=== PATIENT | male | born 1960 | race Caucasian/White ===

== ENCOUNTER 2017-06-04 22:11 | Emergency (ER) | payer MEDICAID ==
[~2017-06-04 22:11] MED LIST: TRIAMCINOLONE 0.1% 15GM OINT TP SCH
[2017-06-04 22:17] VITALS: RESP 16
--- NOTE | 2017-06-04 22:34 | EDPHY ---
H & P Stated Complaint: bug bite to l leg yesterday, worsening redness, swelling today Source: Patient, Family Exam Limitations: No limitations - Personal History Current Tetanus/Diphtheria Vaccine: Yes Tetanus Vaccine Date: WITHIN 10 YRS - Medical/Surgical History Hx Asthma: No Hx Chronic Respiratory Disease: No Hx Diabetes: Yes Hx Cardiac Disease: No Hx Renal Disease: No Hx Cirrhosis: No Hx Alcoholism: No Hx HIV/AIDS: No Hx Splenectomy or Spleen Trauma: No Other PMH: Diabetes, knee surgery - Social History Smoking Status: Never smoked HPI/ROS: CHIEF COMPLAINT: Bug bite HISTORY OF PRESENT ILLNESS: Patient complains of bug bite to the left medial ankle. This happened last night when he stepped outside is home. Did not see what it was. His had the same complaint but hers has resolved. Today his has started to become more painful, pruritic and red. It is localized to the area of vector inoculation. No systemic spreading. No fever chills. No leg pain. No difficulty with range of motion of the ankle. No blistering. No purulence. He is applied Neosporin to it and keep the wound covered. No other associated complaints or modifying factors. REVIEW OF SYSTEMS: Ten systems reviewed and are negative unless otherwise noted in the HPI PAST MEDICAL HISTORY: Hypothyroid, type 2 diabetes SOCIAL HISTORY: Nonsmoker. Resides here in [place] FAMILY HISTORY: Noncontributory EXAMINATION General Appearance: Alert, no distress Respiratory: No distress. No retractions. No tachypnea Cardiovascular: Regular rate. pulses intact distally in symmetrically. 2+ DP and PT pulses. Neurological: A&O, nonfocal, normal gait Skin: Warm and dry. 2 cm area of erythema with central vesicles over the left medial ankle. This is a urticarial. No surrounding cellulitis. No surrounding warmth, purulence, induration or fluctuance. Extremities: Mild tenderness of the area bug bite. No pedal edema. No erythema or edema of the left lower extremity. No asymmetry of the legs. No evidence of DVT. Psychiatric: Mood and affect normal DIFFERENTIAL DIAGNOSES: Including but not limited to insect bite, insect bite with localized reaction, cellulitis, blister MDM: 10:30 p.m. Insect bite to the left medial ankle. There is localized erythema. No cellulitis. No edema. No fluctuance or purulence. Treat with topical triamcinolone for 24-48 hours. Instructed him to apply nonocclusive dressings well as steroid cream is in place. He is leaving town tomorrow for road trip, thus he will provide prescriptions Bactrim and Keflex. He is to the 24-48 hours. He is to take him if there is any increasing redness. Was no evidence of DVT or cellulitis at this time. We discussed tight glucose management as he is a type 2 diabetic on metformin. He is comfortable with this plan. He is discharged home stable condition SUPERVISION: This patient was independently evaluated without direct examination by the attending physician. Case was discussed with attending physician. (Joel Reynolds) PHYSICIAN DOCUMENTATION: The patient was evaluated and managed by the Physician Duplicate Maker. My co- signature indicates that I have reviewed this chart and I agree with the findings and plan of care as documented. I am the secondary supervising physician. (Yanni Gonzalez) Constitutional: Initial Vital Signs Temperature (C) 36.6 C 06/04/17 22:15 Heart Rate 66 06/04/17 22:15 Respiratory Rate 16 06/04/17 22:15 Blood Pressure 117/85 H 06/04/17 22:15 O2 Sat (%) 96 06/04/17 22:15 O2 Delivery Mode Room Air Allergies/Adverse Reactions: ENVIRONMENTAL Allergy (Uncoded 12/27/12 15:37) Other-Enter Comments Home Medications: Medication Instructions Recorded Acyclovir [Zovirax 400 mg (RX)] 400 mg PO DAILY 12/21/12 Cetirizine [ZyrTEC 10 mg (RX)] 10 mg PO DAILY PRN 12/21/12 Fenofibrate,Micronized [Lofibra] 200 mg PO DAILY 12/21/12 Levothyroxine [Synthroid 50 mcg 50 mcg PO DAILY06 12/21/12 (RX)] Cephalexin [Keflex (*)] 500 mg PO TID #30 cap 06/04/17 Lisinopril 06/04/17 Metformin HCl [Metformin 1000 mg] 1,500 mg PO DAILY 06/04/17 Sulfamethox/Tmp 800/160 mg 2 tab PO BID 10 Days 06/04/17 [Bactrim Ds] Departure - Departure Disposition: Home, Routine, Self-Care Clinical Impression: Insect bite of ankle with local reaction Condition: Good Instructions: Cephalexin (By mouth), Sulfamethoxazole/Trimethoprim (By mouth), Insect Bite or Sting (ED), Type 2 Diabetes in Adults (ED), Managing Diabetes During Sick Days (ED) Additional Instructions: 1. Topical triamcinolone for 24-48 hours and then re-evaluate with wound check 2. Bactrim and Keflex prescriptions to be taking if there is increasing redness , any fever or warmth to the area 3. Recommend follow up at nearest emergency department if there is spread of redness or swelling to the calf or any pain with passive flexion of the ankle. Referrals: Carter Perez MD [Primary Care Provider] - As per Instructions Prescriptions: Cephalexin [Keflex (*)] 500 mg PO TID #30 cap Sulfamethox/Tmp 800/160 mg [Bactrim Ds] 2 tab PO BID 10 Days
[2017-06-04] MEDS ORDERED: CEPHALEXIN 500MG PREPACK#4 BTL TAKEHOME ONE (22:38)
[2017-06-04] MEDS ORDERED: SULFAMET/TMP DS PREPACK#2 BTL TAKEHOME ONE (22:38)
[2017-06-04 23:22] VITALS: BP 128/77; PULSE 78; TEMP 98.2; O2SAT 98
[2017-06-05] MEDS ORDERED: TRIAMCINOLONE 0.1% 15GM OINT TP SCH ×2 (09:00)
== END 2017-06-04 23:00 | disposition home or self-care (01) ==
DX: S90.562A Insect bite (nonvenomous), left ankle, initial encounter (principal); E11.9 Type 2 diabetes mellitus without complications; Z79.84 Long term (current) use of oral hypoglycemic drugs; W57.XXXA Bitten or stung by nonvenomous insect and other nonvenomous arthropods, initial encounter; Y92.89 Other specified places as the place of occurrence of the external cause; Y99.8 Other external cause status; Y93.89 Activity, other specified